=== PATIENT | female | born 1950 | race Caucasian/White ===

== ENCOUNTER 2023-09-09 11:52 | Outpatient (CLI) | payer MEDICARE ==
[2023-09-09 12:56] LABS: #Basophils 0.1 10x3/uL (0.0-0.2); #Eosinphils 0.4 10x3/uL (0.0-0.5); #Monocytes 0.7 10x3/uL (0.0-1.1); #Neutrophils 4.1 10x3/uL (1.5-8.4); %Basophils 0.8 % (0.0-2.0); %Eosinophils 5.8 % (0.0-6.0); %Lymphocytes 27.6 % (18.0-47.0); %Monocytes 9.3 % (0.0-10.0); %Neutrophils 56.2 % (40.0-75.0); Hematocrit 37.2 % (34.9-44.5); Hemoglobin 12.6 g/dL (12.0-15.5); Mean Corpuscular HGB CONC 33.9 g/dL (32.0-36.0); Mean Corpuscular Hemoglobin 31.9 pg (27.0-33.0); Mean Corpuscular Volume 94.2 fl (81.6-98.3); Mean Platelet Volume 8.8 fl (7.4-10.4); Platelet Count 263 10x3/uL (150-450); RBC Distribution Width 12.5 % (11.5-14.5); Red Blood Cell (RBC) Count 3.95 10x6/uL (3.90-5.03); White Blood Cell (WBC) Count 7.2 10x3/uL (3.5-10.5)
[2023-09-09 13:20] LABS: ALT (SGPT) 57 U/L (8-55); AST (SGOT) 21 U/L (5-34); Albumin 4.1 g/dL (3.4-4.8); Alkaline Phosphatase 57 U/L (40-110); Anion Gap 13 mmol/L (10-20); BUN (Urea Nitrogen) 24 mg/dL (9.8-20.1); Bilirubin, Total 0.4 mg/dL (0.2-1.2); Calc. Creatinine Clearance 0 mL/min (70-130); Calcium 8.7 mg/dL (7.8-10.44); Carbon Dioxide 23 mmol/L (23-31); Chloride 107 mmol/L (98-107); Estimated GFR 67; Globulin 2.4 g/dL (2.4-3.5); Glucose 81 mg/dL (83-110); Potassium 4.1 mmol/L (3.5-5.1); Protein, Total 6.5 g/dL (5.8-8.1); Sodium 139 mmol/L (136-145)
== END 2023-09-09 11:53 | disposition home or self-care (01) ==
LOC: LABBT 11:52
PROVIDERS: ATTEND Internal Medicine Cardiovascular Disease
DX: Z01.818 Encounter for other preprocedural examination (principal)
CPT/HCPCS: 80053; 85025; 93005; 93010

== ENCOUNTER 2023-09-14 05:45 | Inpatient (IN) | payer MEDICARE ==
[2023-09-09 12:42] VITALS: BMI 25.4
[2023-09-14] MEDS ORDERED: fentaNYL 50 mcg/mL 1 mL Vial ONE (06:09)
[2023-09-14] MEDS ORDERED: Nitroglycerin 50 MG/250 ML BOT 250 ML ONE (06:10)
[2023-09-14] MEDS ORDERED: Heparin 10,000 UNITS/ 10 ML VIAL ONE ×2 (06:10→08:06)
[2023-09-14] MEDS ORDERED: Midazolam HCl 2 mg/2 ml Vial ONE ×3 (06:10→15:14)
[2023-09-14] MEDS ORDERED: Atropine Sulfate 1 mg/10 ml Syringe ONE (07:02)
[2023-09-14] MEDS ORDERED: Heparin 10,000 UNITS/1 ML VIAL 30,000 UNITS in Sodium Chloride 0.9% 1,000 ML FS SCH (10:15)
[2023-09-14] MEDS ORDERED: Bupivacaine PF 0.5% 30 ML VIAL ONE (10:18)
[2023-09-14] MEDS ORDERED: Albumin 5% 500 ML ONE (10:18)
[2023-09-14] MEDS ORDERED: EPINEPHrine 1 MG/ML VIAL ONE (10:18)
[2023-09-14] MEDS ORDERED: PROPOFOL 20 ML ONE (10:44)
[2023-09-14] MEDS ORDERED: Fentanyl 250 MCG/5 ML VIAL ONE (10:44)
[2023-09-14] MEDS ORDERED: Mannitol 12.5 GM/50 ML ONE (11:10)
[2023-09-14] MEDS ORDERED: Papaverine 60 MG/2 ML VIAL ONE (11:10)
[2023-09-14] MEDS ORDERED: Protamine Sulfate 250 MG/25 ML VIAL ONE (11:10)
[2023-09-14] MEDS ORDERED: Magnesium 5 GM/10 ML VIAL ONE (11:10)
[2023-09-14] MEDS ORDERED: Sodium Bicarb 50 mEq/50 ML VIAL ONE (11:10)
[2023-09-14] MEDS ORDERED: Heparin 30,000 units/30 ml VIAL ONE (11:10)
[2023-09-14] MEDS ORDERED: Heparin 5,000 UNITS/ML VIAL ONE (11:10)
[2023-09-14] MEDS ORDERED: Cardioplegic Soln 1,000 ML BAG ONE (11:10)
[2023-09-14] MEDS ORDERED: Thrombin 5000 UNITS/5 ML VIAL ONE (11:10)
[2023-09-14] MEDS ORDERED: Aminocaproic Acid 5 GM/20 ML VIAL ONE (11:10)
[2023-09-14] MEDS ORDERED: Calcium Chloride 1 GM/10 ML Abboject SYRINGE ONE (11:10)
[2023-09-14] MEDS ORDERED: Vancomycin 1 GM VIAL ONE (11:10)
[2023-09-14] MEDS ORDERED: Lidocaine 2% PF 100 mg/5 ml Syringe ONE (11:10)
[2023-09-14] MEDS ORDERED: Potassium Chloride 60 mEq (30 mL) VIAL ONE (11:10)
[2023-09-14] MEDS ORDERED: CEFAZOLIN 1 GM VIAL ONE (11:24)
[2023-09-14] MEDS ORDERED: Rocuronium Bromide 10 MG/ML (10ML VIAL) ONE (11:25)
[2023-09-14] MEDS ORDERED: Esmolol 100 MG/10 ML VIAL ONE (12:16)
[2023-09-14] MEDS ORDERED: Iopamidol 370 76% 100 ML VIAL ONE (13:20)
[2023-09-14] MEDS ORDERED: fentaNYL PF 100 MCG/2 ML SYRINGE ONE (13:25)
[2023-09-14] MEDS ORDERED: hydrALAZINE 20 MG/ML VIAL SLOW IVP PRN (15:30)
[2023-09-14] MEDS ORDERED: Guaifenesin DM 100-10/5 ML UDCUP PO PRN (15:30)
[2023-09-14] MEDS ORDERED: Bisacodyl 10 MG SUPP PR PRN (15:30)
[2023-09-14] MEDS ORDERED: Morphine 2 MG/ML VIAL SLOW IVP PRN (15:30)
[2023-09-14] MEDS ORDERED: Bisacodyl 5 MG TAB PO PRN (15:30)
[2023-09-14] MEDS ORDERED: Promethazine HCl 25 MG/ML VIAL IM PRN (15:30)
[2023-09-14] MEDS ORDERED: fentaNYL 50 mcg/mL 1 mL Vial SLOW IVP PRN (15:30)
[2023-09-14] MEDS ORDERED: Albumin 5% 12.5 GM (250 mL) BOT IVPB PRN (15:30)
[2023-09-14] MEDS ORDERED: Mag-Al 1200 mg/1200 mg/30 ML UDCUP PO PRN (15:30)
[2023-09-14] MEDS ORDERED: NOREPINEPHRINE 8 MG/250 ML-D5W 250 ML IVPB PRN (15:30)
[2023-09-14] MEDS ORDERED: Ipratropium/Albuterol 3 ML NEB NEB PRN (15:30)
[2023-09-14 15:57] LABS: #Eosinphils 0.2 thou/uL (0.0-0.7); #Monocytes 0.8 thou/uL (0.11-0.59); #Neutrophils 11.2 thou/uL (1.40-6.50); %Basophils 0.3 % (0.0-1.0); %Eosinophils 1.1 % (0.0-10.0); %Lymphocytes 11.5 % (21.0-51.0); %Monocytes 5.5 % (0.0-10.0); %Neutrophils 80.4 % (42.0-75.0); Hematocrit 32.9 % (36.0-47.0); Hemoglobin 11.2 g/dL (12.0-16.0); Mean Corpuscular Hemoglobin 31.6 pg (27.0-31.0); Mean Corpuscular Volume 92.9 fl (78.0-98.0); Mean Platelet Volume 8.9 fL (7.4-10.4); Platelet Count 160 10x3/uL (130-400); RBC Distribution Width 12.4 % (11.5-14.5); Red Blood Cell (RBC) Count 3.54 mill/uL (4.20-5.40); White Blood Cell (WBC) Count 13.9 10x3/uL (4.8-10.8)
[2023-09-14] MEDS: Nitroglycerin 50 MG/250 ML BOT 250 ML ONE (16:00)
[2023-09-14 16:04] LABS: Actual Bicarbonate (HCO3a) 20.6 mEq/L (22-28); Base Excess (BEa) -3.8 mEq/L (-2.0 to +3.0); CO2 Tension 34.9 mmHg (35.0-45.0); Calcium, Ionized (arterial) 1.12 mmol/L (1.12-1.30); Carboxyhemoglobin (COHb) 0.6 gm% (0.0-3.0); Hematocrit-ABG 34 % (36.0-47.0); Hemoglobin (Hb) 11.7 g/dL (12.0-16.0); O2 Tension (PaO2), arterial 91.6 mmHg (> 70.0); pH, Arterial 7.388 (7.35-7.45)
[2023-09-14 16:05] LABS: ALV-art Gradient 149.975 mmHg (0-20); Puncture Site ALINE
[2023-09-14 16:09] LABS: INR-International Normal Ratio 1.5; PTT 28.6 sec (22.9-36.1); Prothrombin Time 18.2 sec (12.0-14.7)
[2023-09-14 16:12] LABS: Anion Gap 11 mmol/L (10-20); BUN (Urea Nitrogen) 18 mg/dL (9.8-20.1); Calc. Creatinine Clearance 73 mL/min (70-130); Calcium 7.8 mg/dL (7.8-10.44); Carbon Dioxide 21 mmol/L (23-31); Chloride 109 mmol/L (98-107); Estimated GFR 93; Glucose 152 mg/dL (83-110); Potassium 3.7 mmol/L (3.5-5.1); Sodium 137 mmol/L (136-145)
[2023-09-14] MEDS ORDERED: HUMULIN R 100 UNITS in Sodium Chloride 0.9% 100 ML IVPB SCH (16:15)
[2023-09-14] MEDS ORDERED: Dextrose 50% Abboject 50 ML SYRINGE SLOW IVP PRN (16:15)
[2023-09-14] MEDS ORDERED: Glucagon 1 MG/ML KIT SC PRN (16:15)
[2023-09-14] MEDS ORDERED: Dextrose 5% in Water 1,000 ML IV PRN (16:15)
[2023-09-14] MEDS: Potassium Chloride 20 MEQ (100 mL) BAG IVPB PRN (16:49)
[2023-09-14] MEDS: Sodium Chloride 0.9% 1,000 ML IV SCH (16:49)
[2023-09-14] MEDS: Magnesium 2 GM/50 ML(in water) 2 GM in Premix 1 BAG IVPB SCH (16:49)
[2023-09-14] MEDS: Acetaminophen 325 MG TAB PO SCH (16:50)
[2023-09-14] MEDS: Insulin Regular 300 UNITS/3 ML VIAL SC PRN (16:50)
[2023-09-14] MEDS: Post-Op Insulin Drip Protocol IVPB ONE (16:50)
[2023-09-14] MEDS: niCARdipine 25 MG in Sodium Chloride 0.9% 250 ML 250 ML IVPB SCH (16:51)
[2023-09-14] MEDS: Aspirin Chewable 81 MG TAB PO SCH (19:49)
[2023-09-14] MEDS: Famotidine/PF 20 mg/2ml Vial SLOW IVP SCH (20:42)
[2023-09-14] MEDS: CEFAZOLIN 2 GM in Sodium Chloride 0.9% 100 ML IVPB SCH (20:42)
[2023-09-14] MEDS: Albumin 5% 12.5 GM (250 mL) BOT IVPB PRN (20:42)
[2023-09-14] MEDS: Atorvastatin Calcium 40 MG TAB PO SCH (20:43)
[2023-09-14 21:21] LABS: Hematocrit 26.5 % (36.0-47.0); Hemoglobin 8.8 g/dL (12.0-16.0)
[2023-09-14 21:45] LABS: Potassium 3.9 mmol/L (3.5-5.1)
[2023-09-14 23:44] LABS: #Monocytes 0.8 thou/uL (0.11-0.59); #Neutrophils 11.1 thou/uL (1.40-6.50); %Basophils 0.1 % (0.0-1.0); %Eosinophils 0.1 % (0.0-10.0); %Lymphocytes 6.9 % (21.0-51.0); %Monocytes 6.1 % (0.0-10.0); Hematocrit 25.7 % (36.0-47.0); Hemoglobin 8.5 g/dL (12.0-16.0); Mean Corpuscular HGB CONC 33.1 g/dL (32.0-36.0); Mean Corpuscular Hemoglobin 32.2 pg (27.0-31.0); Mean Platelet Volume 8.8 fL (7.4-10.4); Platelet Count 208 10x3/uL (130-400); RBC Distribution Width 12.7 % (11.5-14.5); Red Blood Cell (RBC) Count 2.64 mill/uL (4.20-5.40); White Blood Cell (WBC) Count 12.8 10x3/uL (4.8-10.8)
[2023-09-14 23:57] LABS: INR-International Normal Ratio 1.5; PTT 27.4 sec (22.9-36.1); Prothrombin Time 18.3 sec (12.0-14.7)
[2023-09-15 00:18] LABS: ALT (SGPT) 18 U/L (8-55); AST (SGOT) 19 U/L (5-34); Albumin 3.5 g/dL (3.4-4.8); Alkaline Phosphatase 32 U/L (40-110); Anion Gap 8 mmol/L (10-20); BUN (Urea Nitrogen) 20 mg/dL (9.8-20.1); Bilirubin, Total 0.5 mg/dL (0.2-1.2); Calc. Creatinine Clearance 65 mL/min (70-130); Calcium 7.7 mg/dL (7.8-10.44); Carbon Dioxide 22 mmol/L (23-31); Chloride 112 mmol/L (98-107); Estimated GFR 85; Globulin 1.5 g/dL (2.4-3.5); Glucose 154 mg/dL (83-110); Sodium 138 mmol/L (136-145)
[2023-09-15 00:22] LABS: Mean Corpuscular Volume 97.3 fl (78.0-98.0)
[2023-09-15] MEDS: fentaNYL 50 mcg/mL 1 mL Vial SLOW IVP PRN (01:22)
[2023-09-15 04:35] LABS: #Monocytes 0.8 thou/uL (0.11-0.59); #Neutrophils 7.8 thou/uL (1.40-6.50); %Basophils 0.1 % (0.0-1.0); %Lymphocytes 9.4 % (21.0-51.0); %Monocytes 8.5 % (0.0-10.0); %Neutrophils 81.5 % (42.0-75.0); Hemoglobin 7.7 g/dL (12.0-16.0); Mean Corpuscular HGB CONC 33.5 g/dL (32.0-36.0); Mean Corpuscular Hemoglobin 31.3 pg (27.0-31.0); Mean Platelet Volume 8.8 fL (7.4-10.4); Platelet Count 206 10x3/uL (130-400); RBC Distribution Width 14.4 % (11.5-14.5); Red Blood Cell (RBC) Count 2.46 mill/uL (4.20-5.40); White Blood Cell (WBC) Count 9.6 10x3/uL (4.8-10.8)
[2023-09-15 04:37] LABS: Mean Corpuscular Volume 93.5 fl (78.0-98.0)
[2023-09-15 04:56] LABS: Anion Gap 9 mmol/L (10-20); BUN (Urea Nitrogen) 19 mg/dL (9.8-20.1); Calc. Creatinine Clearance 67 mL/min (70-130); Calcium 7.6 mg/dL (7.8-10.44); Carbon Dioxide 23 mmol/L (23-31); Chloride 112 mmol/L (98-107); Estimated GFR 87; Glucose 135 mg/dL (83-110); Potassium 3.9 mmol/L (3.5-5.1); Sodium 140 mmol/L (136-145)
[2023-09-15 07:59] LABS: Actual Bicarbonate (HCO3a) 20.8 mEq/L (22-28); Base Excess (BEa) -2.9 mEq/L (-2.0 to +3.0); CO2 Tension 31.6 mmHg (35.0-45.0); Calcium, Ionized (arterial) 1.04 mmol/L (1.12-1.30); Carboxyhemoglobin (COHb) 0.8 gm% (0.0-3.0); Hematocrit-ABG 26 % (36.0-47.0); O2 Tension (PaO2), arterial 113.9 mmHg (> 70.0); Potassium - ABG Lab 3.78 mmol/L (3.70-5.30); pH, Arterial 7.436 (7.35-7.45)
[2023-09-15 08:01] LABS: Puncture Site Arterial Line
[2023-09-15] MEDS: FLU VACC QS2023(65UP)/MF59C/PF 60 MCG/0.5 ML SYRINGE IM ONE (08:07)
[2023-09-15] MEDS: Magnesium 2 GM/50 ML(in water) 2 GM in Premix 1 BAG IVPB SCH (08:08)
[2023-09-15] MEDS: BuPROPion XL 150 MG ER.TAB PO SCH (09:19)
[2023-09-15] MEDS: Aspirin 325 MG TAB PO SCH (09:20)
[2023-09-15] MEDS: Aspirin Chewable 81 MG TAB PO SCH (09:41)
[2023-09-15] MEDS: Ketorolac Tromethamine 30 MG (1 mL) VIAL IVP SCH (11:12)
[2023-09-15 13:37] LABS: #Monocytes 0.9 thou/uL (0.11-0.59); #Neutrophils 9.4 thou/uL (1.40-6.50); %Basophils 0.1 % (0.0-1.0); %Lymphocytes 11.9 % (21.0-51.0); %Monocytes 7.6 % (0.0-10.0); Hematocrit 22.9 % (36.0-47.0); Hemoglobin 7.6 g/dL (12.0-16.0); Mean Corpuscular HGB CONC 33.2 g/dL (32.0-36.0); Mean Corpuscular Hemoglobin 30.5 pg (27.0-31.0); Mean Platelet Volume 8.9 fL (7.4-10.4); Platelet Count 188 10x3/uL (130-400); RBC Distribution Width 15.9 % (11.5-14.5); Red Blood Cell (RBC) Count 2.49 mill/uL (4.20-5.40); White Blood Cell (WBC) Count 11.8 10x3/uL (4.8-10.8)
[2023-09-15 13:50] LABS: INR-International Normal Ratio 1.5; PTT 29.3 sec (22.9-36.1); Prothrombin Time 18.5 sec (12.0-14.7)
[2023-09-15 13:57] LABS: Anion Gap 9 mmol/L (10-20); BUN (Urea Nitrogen) 20 mg/dL (9.8-20.1); Calc. Creatinine Clearance 64 mL/min (70-130); Calcium 7.4 mg/dL (7.8-10.44); Carbon Dioxide 22 mmol/L (23-31); Chloride 111 mmol/L (98-107); Estimated GFR 83; Glucose 222 mg/dL (83-110); Potassium 3.8 mmol/L (3.5-5.1); Sodium 138 mmol/L (136-145)
[2023-09-15 18:42] LABS: #Neutrophils 9.4 thou/uL (1.40-6.50); %Basophils 0.2 % (0.0-1.0); %Monocytes 8.2 % (0.0-10.0); %Neutrophils 76.3 % (42.0-75.0); Hematocrit 26.8 % (36.0-47.0); Hemoglobin 8.9 g/dL (12.0-16.0); Mean Corpuscular HGB CONC 33.2 g/dL (32.0-36.0); Mean Corpuscular Hemoglobin 30.4 pg (27.0-31.0); Mean Corpuscular Volume 91.5 fl (78.0-98.0); Mean Platelet Volume 9.1 fL (7.4-10.4); Platelet Count 178 10x3/uL (130-400); RBC Distribution Width 15.5 % (11.5-14.5); Red Blood Cell (RBC) Count 2.93 mill/uL (4.20-5.40); White Blood Cell (WBC) Count 12.4 10x3/uL (4.8-10.8)
[2023-09-15] MEDS: HYDROcodone/Acetaminophen 5/325 mg Tablet PO PRN (20:03)
[2023-09-16 04:17] LABS: #Eosinphils 0.1 thou/uL (0.0-0.7); #Monocytes 1.5 thou/uL (0.11-0.59); #Neutrophils 7.8 thou/uL (1.40-6.50); %Basophils 0.3 % (0.0-1.0); %Eosinophils 0.6 % (0.0-10.0); %Lymphocytes 17.6 % (21.0-51.0); %Neutrophils 68.1 % (42.0-75.0); Hematocrit 23.7 % (36.0-47.0); Hemoglobin 7.9 g/dL (12.0-16.0); Mean Corpuscular HGB CONC 33.3 g/dL (32.0-36.0); Mean Corpuscular Hemoglobin 30.5 pg (27.0-31.0); Mean Corpuscular Volume 91.5 fl (78.0-98.0); Mean Platelet Volume 9.1 fL (7.4-10.4); Platelet Count 139 10x3/uL (130-400); RBC Distribution Width 15.6 % (11.5-14.5); Red Blood Cell (RBC) Count 2.59 mill/uL (4.20-5.40); White Blood Cell (WBC) Count 11.4 10x3/uL (4.8-10.8)
[2023-09-16 04:44] LABS: Anion Gap 7 mmol/L (10-20); BUN (Urea Nitrogen) 16 mg/dL (9.8-20.1); Calc. Creatinine Clearance 75 mL/min (70-130); Calcium 7.1 mg/dL (7.8-10.44); Carbon Dioxide 25 mmol/L (23-31); Chloride 110 mmol/L (98-107); Estimated GFR 93; Glucose 117 mg/dL (83-110); Potassium 3.9 mmol/L (3.5-5.1); Sodium 138 mmol/L (136-145)
[2023-09-16] MEDS: Furosemide 40 MG (4 mL) VIAL SLOW IVP SCH ×2 (08:19→14:03)
[2023-09-16] MEDS: Ondansetron PF 4 MG/2 ML Vial IVP PRN (14:03)
[2023-09-17 04:22] LABS: #Eosinphils 0.2 thou/uL (0.0-0.7); #Monocytes 1.3 thou/uL (0.11-0.59); #Neutrophils 8.6 thou/uL (1.40-6.50); %Basophils 0.1 % (0.0-1.0); %Eosinophils 1.8 % (0.0-10.0); %Lymphocytes 15.9 % (21.0-51.0); %Monocytes 10.8 % (0.0-10.0); %Neutrophils 70.8 % (42.0-75.0); Hematocrit 24.1 % (36.0-47.0); Hemoglobin 8.2 g/dL (12.0-16.0); Mean Corpuscular Hemoglobin 31.4 pg (27.0-31.0); Mean Corpuscular Volume 92.3 fl (78.0-98.0); Mean Platelet Volume 9.4 fL (7.4-10.4); Platelet Count 145 10x3/uL (130-400); RBC Distribution Width 15.2 % (11.5-14.5); Red Blood Cell (RBC) Count 2.61 mill/uL (4.20-5.40); White Blood Cell (WBC) Count 12.2 10x3/uL (4.8-10.8)
[2023-09-17 05:19] LABS: Anion Gap 5 mmol/L (10-20); BUN (Urea Nitrogen) 16 mg/dL (9.8-20.1); Calc. Creatinine Clearance 70 mL/min (70-130); Calcium 7.8 mg/dL (7.8-10.44); Carbon Dioxide 30 mmol/L (23-31); Chloride 105 mmol/L (98-107); Estimated GFR 89; Glucose 108 mg/dL (83-110); Potassium 4.1 mmol/L (3.5-5.1); Sodium 136 mmol/L (136-145)
[2023-09-18 04:35] LABS: #Eosinphils 0.2 thou/uL (0.0-0.7); #Monocytes 1.4 thou/uL (0.11-0.59); #Neutrophils 10.5 thou/uL (1.40-6.50); %Basophils 0.2 % (0.0-1.0); %Eosinophils 1.2 % (0.0-10.0); %Lymphocytes 8.7 % (21.0-51.0); %Monocytes 10.1 % (0.0-10.0); %Neutrophils 79.2 % (42.0-75.0); Hematocrit 26.2 % (36.0-47.0); Hemoglobin 8.8 g/dL (12.0-16.0); Mean Corpuscular HGB CONC 33.6 g/dL (32.0-36.0); Mean Corpuscular Hemoglobin 31.2 pg (27.0-31.0); Mean Corpuscular Volume 92.9 fl (78.0-98.0); Mean Platelet Volume 9.4 fL (7.4-10.4); Platelet Count 212 10x3/uL (130-400); RBC Distribution Width 14.5 % (11.5-14.5); Red Blood Cell (RBC) Count 2.82 mill/uL (4.20-5.40); White Blood Cell (WBC) Count 13.3 10x3/uL (4.8-10.8)
[2023-09-18 05:16] LABS: Anion Gap 9 mmol/L (10-20); BUN (Urea Nitrogen) 13 mg/dL (9.8-20.1); Calc. Creatinine Clearance 76 mL/min (70-130); Calcium 8.1 mg/dL (7.8-10.44); Carbon Dioxide 29 mmol/L (23-31); Chloride 99 mmol/L (98-107); Estimated GFR 93; Glucose 159 mg/dL (83-110); Potassium 3.8 mmol/L (3.5-5.1); Sodium 133 mmol/L (136-145)
[2023-09-18] MEDS ORDERED: Nitroglycerin 0.4 MG TAB (25 Tab Bottle) SL PRN (13:27)
[2023-09-18] MEDS ORDERED: Mineral Oil ENEMA PR PRN (13:27)
[2023-09-18] MEDS ORDERED: Artificial Tear Sol 15 ML BOT EA EYE PRN (13:27)
[2023-09-18] MEDS: Famotidine 20 MG TAB PO SCH (19:34)
[2023-09-18] MEDS: Atorvastatin Calcium 20 MG TAB PO SCH (19:35)
[2023-09-18] MEDS: Metoprolol Tartrate 25 MG TAB PO SCH (19:35)
[2023-09-19 05:04] LABS: #Eosinphils 0.6 thou/uL (0.0-0.7); #Monocytes 1.6 thou/uL (0.11-0.59); #Neutrophils 8.1 thou/uL (1.40-6.50); %Basophils 0.3 % (0.0-1.0); %Monocytes 12.9 % (0.0-10.0); %Neutrophils 66.1 % (42.0-75.0); Hematocrit 28.5 % (36.0-47.0); Hemoglobin 9.3 g/dL (12.0-16.0); Mean Corpuscular HGB CONC 32.6 g/dL (32.0-36.0); Mean Corpuscular Hemoglobin 30.8 pg (27.0-31.0); Mean Corpuscular Volume 94.4 fl (78.0-98.0); Mean Platelet Volume 9.2 fL (7.4-10.4); Platelet Count 267 10x3/uL (130-400); RBC Distribution Width 14.1 % (11.5-14.5); Red Blood Cell (RBC) Count 3.02 mill/uL (4.20-5.40); White Blood Cell (WBC) Count 12.3 10x3/uL (4.8-10.8)
[2023-09-20 09:58] VITALS: BP 122/79; TEMP 98.6
[2023-09-21 08:29] LABS: Actual Bicarbonate (HCO3a) 21.7 mEq/L (22-28); Analyzer IN Cardio OR; Base Excess (BEa) -1.5 mEq/L (-2.0 to +3.0); Calcium, Ionized (arterial) 1.12 mmol/L (1.12-1.30); Carboxyhemoglobin (COHb) 0.5 gm% (0.0-3.0); Hematocrit-ABG 36 % (36.0-47.0); Hemoglobin (Hb) 12.2 g/dL (12.0-16.0); O2 Tension (PaO2), arterial 347.4 mmHg (> 70.0); Potassium - ABG Lab 3.75 mmol/L (3.70-5.30)
[2023-09-21 08:30] LABS: Actual Bicarbonate (HCO3v) 24.6 mEq/L (22-28); Analyzer IN Cardio OR; Calcium, Ionized (venous) 1.01 mmol/L (1.16-1.32); Chloride (VBG) 106 mmol/L (98-106); Hematocrit-VBG 26 % (36.0-47.0); Hemoglobin (Hb) 8.9 g/dL (11.7-16.1); Potassium (VBG) 4.76 mmol/L (3.70-5.30); Sodium 133 mmol/L (133-146); pH (venous) 7.357 (7.32-7.43)
[2023-09-21 08:30] LABS: Analyzer IN Cardio OR; Base Excess (BEa) -3.8 mEq/L (-2.0 to +3.0); CO2 Tension 32.2 mmHg (35.0-45.0); Calcium, Ionized (arterial) 1.08 mmol/L (1.12-1.30); Carboxyhemoglobin (COHb) 0.4 gm% (0.0-3.0); Hematocrit-ABG 34 % (36.0-47.0); Hemoglobin (Hb) 11.5 g/dL (12.0-16.0); O2 Tension (PaO2), arterial 362.7 mmHg (> 70.0); Potassium - ABG Lab 3.44 mmol/L (3.70-5.30); pH, Arterial 7.411 (7.35-7.45)
[2023-09-21 08:30] LABS: Analyzer IN Cardio OR; Base Excess (BEa) 0.6 mEq/L (-2.0 to +3.0); CO2 Tension 45.1 mmHg (35.0-45.0); Calcium, Ionized (arterial) 0.97 mmol/L (1.12-1.30); Carboxyhemoglobin (COHb) 0.5 gm% (0.0-3.0); Hematocrit-ABG 25 % (36.0-47.0); Hemoglobin (Hb) 8.4 g/dL (12.0-16.0); O2 Tension (PaO2), arterial 450.4 mmHg (> 70.0); pH, Arterial 7.378 (7.35-7.45)
[2023-09-21 08:31] LABS: Actual Bicarbonate (HCO3a) 22.8 mEq/L (22-28); Analyzer IN Cardio OR; Base Excess (BEa) -2.1 mEq/L (-2.0 to +3.0); CO2 Tension 39.4 mmHg (35.0-45.0); Calcium, Ionized (arterial) 1.25 mmol/L (1.12-1.30); Carboxyhemoglobin (COHb) 0.3 gm% (0.0-3.0); Hematocrit-ABG 27 % (36.0-47.0); Hemoglobin (Hb) 9.1 g/dL (12.0-16.0); O2 Tension (PaO2), arterial 429.5 mmHg (> 70.0); Potassium - ABG Lab 4.65 mmol/L (3.70-5.30); pH, Arterial 7.381 (7.35-7.45)
[2023-09-21 08:31] LABS: Actual Bicarbonate (HCO3a) 22.2 mEq/L (22-28); Analyzer IN Cardio OR; Base Excess (BEa) -2.8 mEq/L (-2.0 to +3.0); CO2 Tension 39.5 mmHg (35.0-45.0); Carboxyhemoglobin (COHb) 0.3 gm% (0.0-3.0); Hematocrit-ABG 34 % (36.0-47.0); Hemoglobin (Hb) 11.4 g/dL (12.0-16.0); pH, Arterial 7.368 (7.35-7.45)
[2023-09-21 08:31] LABS: Puncture Site Arterial Line
[2023-09-21 08:32] LABS: Puncture Site Arterial Line
[2023-09-21 08:32] LABS: Puncture Site Arterial Line
[2023-09-21 08:32] LABS: Puncture Site Arterial Line
[2023-09-21 08:33] LABS: Puncture Site Arterial Line
== END 2023-09-20 09:15 | disposition home or self-care (01) | DRG 234 ==
LOC: SDC 05:45 → CCU 15:30 → 2NO 09-18 20:22
PROVIDERS: ADMIT Internal Medicine Cardiovascular Disease; ATTEND Internal Medicine Cardiovascular Disease
PROC: 02100Z9 Bypass Coronary Artery, One Artery from Left Internal Mammary, Open Approach (ICD-10-PCS; principal; 2023-09-14)
PROC: 4A023N7 Measurement of Cardiac Sampling and Pressure, Left Heart, Percutaneous Approach (ICD-10-PCS; 2023-09-14)
PROC: 021109W Bypass Coronary Artery, Two Arteries from Aorta with Autologous Venous Tissue, Open Approach (ICD-10-PCS; 2023-09-14)
PROC: 06BQ4ZZ Excision of Left Saphenous Vein, Percutaneous Endoscopic Approach (ICD-10-PCS; 2023-09-14)
PROC: 5A1221Z Performance of Cardiac Output, Continuous (ICD-10-PCS; 2023-09-14)
PROC: 02L70CK Occlusion of Left Atrial Appendage with Extraluminal Device, Open Approach (ICD-10-PCS; 2023-09-14)
PROC: B2111ZZ Fluoroscopy of Multiple Coronary Arteries using Low Osmolar Contrast (ICD-10-PCS; 2023-09-14)
DX: I25.110 Atherosclerotic heart disease of native coronary artery with unstable angina pectoris (principal); D68.9 Coagulation defect, unspecified; J90 Pleural effusion, not elsewhere classified; R94.39 Abnormal result of other cardiovascular function study; I10 Essential (primary) hypertension; E78.5 Hyperlipidemia, unspecified; M19.90 Unspecified osteoarthritis, unspecified site; Z87.891 Personal history of nicotine dependence; Z79.82 Long term (current) use of aspirin; Z79.899 Other long term (current) drug therapy
CPT/HCPCS: 36416; 36430; 71045; 80048; 82805; 85025; 85347; 85610; 85730; 86850; 86900; 86901; 90471; 90694; 93005; 93010; 93458; 93798; 94002; 94003; 94150; 99152; 99153; A4311; A4648; C1751; C1769; C1887; G0008; J0171; J0461; J0665; J0690; J1643; J1644; J1815; J1885; J1940; J2001; J2150; J2250; J2405; J2440; J2704; J2720; J3010; J3370; J3475; J3480; J3490; J7050; P9016; P9035; P9045; P9059; Q9967; S0017; S0028